=== PATIENT | male | born 1955 | race Hispanic/Latino ===

== ENCOUNTER 2022-03-20 22:57 | Emergency (ER) | payer OTHER, SELFPAY ==
[2022-03-20 23:05] VITALS: BP 130/63; PULSE 65; RESP 16; O2SAT 97; BMI 31.7
--- NOTE | 2022-03-20 23:31 | DI.RAD.S_ITS ---
PROCEDURE: XR LUMBAR SPINE 2-3V INDICATIONS: back injury TECHNIQUE: 3 views of the lumbar spine were acquired. COMPARISON: None. FINDINGS: Bones: 5 [id number] vertebrae are present. There is minimal retrolisthesis at L1-L2, L2-L3, and L3-L4. Minimal anterolisthesis demonstrated at L5-S1. No vertebral body compression fractures. There is suggestion of pars defects at L5. Soft tissues: Overlying bowel gas pattern is normal. No suspicious soft tissue calcifications. IMPRESSION: 1. No definite acute fractures. 2. Minimal multilevel retrolisthesis and minimal anterolisthesis at L5-S1. 3. Suspected pars defects at L5. Further evaluation may be obtained with dedicated oblique views or CT. Dictated by: Alton Zavala M.D. on 03/21/2022 at 0:26 Approved by: Alton Zavala M.D. on 03/21/2022 at 0:28
[2022-03-21 00:16] VITALS: TEMP 36.8
--- NOTE | 2022-03-21 00:45 | DI.CT.S_ITS ---
PROCEDURE: CT THORACIC SPINE WO CON INDICATIONS: Right side pain/injury TECHNIQUE: Noncontrast 3 mm thick sections acquired through the region of interest in the thoracic spine. Sagittal and coronal reformats were then constructed. For radiation dose reduction, the following was used: automated exposure control. COMPARISON: None. FINDINGS: Image quality: Excellent. Bones: There is normal overall bony alignment. No fractures or subluxation. Specifically, no acute vertebral body compression fractures. There is mild multilevel degenerative disc disease throughout the thoracic spine. No suspicious sclerotic or lytic bony lesions. Central spinal canal is of normal overall caliber. The visualized ribs appear intact. Soft tissues: No paravertebral masses or hematomas. Visualized posteromedial lungs appear clear. IMPRESSION: 1. No fracture or subluxation. Dictated by: Alton Zavala M.D. on 03/21/2022 at 1:27 Approved by: Alton Zavala M.D. on 03/21/2022 at 1:37
--- NOTE | 2022-03-21 00:45 | DI.CT.S_ITS ---
PROCEDURE: CT LUMBAR SPINE WO CON INDICATIONS: Right side pain/injury TECHNIQUE: Noncontrast 3 mm thick sections acquired from the T12 level to the sacrum. Sagittal and coronal reformats were constructed. For radiation dose reduction, the following was used: automated exposure control. COMPARISON: [facility], CR, XR LUMBAR SPINE 2-3V, 03/20/2022, 23:33. FINDINGS: Image quality: Excellent. Bones: There is minimal anterolisthesis at L5-S1. No fractures or subluxation. Specifically, no acute vertebral body compression fractures. No suspicious lytic or blastic bony lesions. No pars defects. No high-grade spinal canal or neural foraminal narrowing. There is moderate left neural foraminal narrowing at L5-S1. Mild to moderate right neural foraminal narrowing also demonstrated at L5-S1. Moderate facet arthropathy is demonstrated at L5-S1 as well as mild arthropathy at L4-5. Soft tissues: No retroperitoneal masses or hematomas. Visualized aorta is normal in caliber. IMPRESSION: 1. No fracture or subluxation. 2. Facet arthropathy in the lower lumbar spine including moderate degeneration at L5-S1. 3. Moderate left neural foraminal narrowing at L5-S1. Dictated by: Alton Zavala M.D. on 03/21/2022 at 1:37 Approved by: Alton Zavala M.D. on 03/21/2022 at 1:44
--- NOTE | 2022-03-21 00:47 | ED_ITS ---
HPI - Back Pain/Injury General Chief Complaint: Back Pain/Injury Stated Complaint: back injury at work Time Seen by Provider: 03/21/22 00:23 Source: patient History of Present Illness HPI Narrative: Patient brought here by his grandson. Complains of right side mid/lower back pain. Patient was at work, [employer], lifting boxes and felt pain in his mid and lower back. It did radiate down to his leg. No saddle paresthesia no bowel or bladder incontinence. No leg numbness tingling or weakness. Patient states has had pain with walking now. Pain with movement. No prior history of back surgery or therapy. Related Data Allergies Allergy/AdvReac Type Severity Reaction Status Date / Time No Known Drug Allergies Allergy Verified 03/20/22 23:21 Review of Systems Review of Systems Narrative: GENERAL: negative chills, fatigue, malaise, fever, sweats. HEENT: negative sinus pain, ear pain, sore throat RESPIRATORY: negative dyspnea, cough CARDIOVASCULAR: negative chest pain, palpitations GASTROINTESTINAL: negative nausea, vomiting, abdominal pain : negative dysuria, frequency, hematuria MUSCULOSKELETAL: Positive muscle or bony pain SKIN: negative rash, skin lesions NEUROLOGIC: negative weakness, numbness, negative bowel or bladder incontinence ROS Unobtainable: All systems reviewed & are unremarkable except as noted in HPI and below Patient History Social History Smoking Status: Never smoker Smoking Status: Never smoker Substance Use Type: does not use Exam Narrative Exam Narrative: GENERAL: in no distress, not toxic not dyspneic HEAD: Normocephalic. EYES: Pupils equal round No scleral icterus. ENT: Mucous membranes moist. NECK: Trachea midline. No midline tenderness or step-off EXTREMITIES: No gross deformities. BACK: No midline tenderness or step-off of the thoracic or lumbar spine. There is reproducible right upper paralumbar and lower parathoracic muscles. Increased pain with side bending left and right and leaning forward and back. No pain with bilateral straight leg raises in supine position NEURO: AOx4. Slightly antalgic gait due to right back pain. But no foot drop. Strong bilateral patellar reflexes. SKIN: Warm and dry PSYCH: Not anxious, is cooperative Initial Vital Signs Initial Vital Signs: Vital Signs Pulse Rate 65 03/20/22 23:05 Respiratory Rate 16 01/18/23 23:05 Blood Pressure 130/63 01/18/23 23:05 Pulse Oximetry 97 03/20/22 23:05 Oxygen Delivery Method 03/20/22 23:05 Course Orders Ordered: ED Orders 03/20/22 23:31 XR lumbar spine 2-3V Stat 03/21/22 00:45 CT lumbar spine wo con Stat CT thoracic spine wo con Stat Discontinued Medications Ketorolac Tromethamine (Ketorolac 30 Mg/Ml Vial) 15 mg IV NOW ONE Stop: 03/21/22 00:46 Last Admin: 03/21/22 01:18 Dose: Not Given Documented By: DANIEL Ketorolac Tromethamine (Ketorolac 30 Mg/Ml Vial) 15 mg IM NOW ONE Stop: 03/21/22 00:47 Last Admin: 03/21/22 01:11 Dose: 15 mg Documented By: DANIEL Vital Signs Vital signs: Vital Signs - 8 hr 03/20/22 23:05 03/21/22 00:16 03/21/22 02:16 Temperature 98.2 F Pulse Rate 65 72 Respiratory Rate 16 18 Blood Pressure 130/63 139/69 Pulse Oximetry 97 97 Oxygen Delivery Method Room Air Room Air MDM - Back Pain/Injury Imaging Data X-ray lumbar spine: Radiologist's Impression: [address] [address] XRay Report Signed Patient: Brant Cui MR#: [id number] : 1955 Acct:[id number] Age/Sex: 66 / M Date of Service: 03/20/22 Loc: ED Accession Number: [id number] ?? Procedure: XR lumbar spine 2-3V Ordering Provider: Joseph Hsu MD PROCEDURE:? XR LUMBAR SPINE 2-3V ? INDICATIONS:? back injury ? TECHNIQUE:? 3 views of the lumbar spine were acquired.? ? COMPARISON:? None. ? FINDINGS:? ? Bones:? 5 [id number] vertebrae are present.? There is minimal retrolisthesis at L1-L2, L2-L3, and L3-L4.? Minimal anterolisthesis demonstrated at L5-S1.? No vertebral body compression fractures.? There is suggestion of pars defects at L5. ? Soft tissues:? Overlying bowel gas pattern is normal.? No suspicious soft tissue calcifications.? ? ? IMPRESSION:? ? 1. No definite acute fractures. ? 2. Minimal multilevel retrolisthesis and minimal anterolisthesis at L5-S1. ? 3. Suspected pars defects at L5.? Further evaluation may be obtained with dedicated oblique views or CT.? ? ? Dictated by: Alton Zavala M.D. on 03/21/2022 at 0:26 ? ? Approved by: Alton Zavala M.D. on 03/21/2022 at 0:28 ? CT thoracic spine: Radiologist's Impression: [address] [address] [address] Scan Report Signed Patient: Brant Cui MR#: [id number] : 1955 Acct:[id number] Age/Sex: 66 / M Date of Service: 03/21/22 Loc: ED Accession Number: [id number] ?? Procedure: CT thoracic spine wo con Ordering Provider: Joseph Hsu MD PROCEDURE:? CT THORACIC SPINE WO CON ? INDICATIONS:? Right side pain/injury ? TECHNIQUE:? Noncontrast 3 mm thick sections acquired through the region of interest in the thoracic spine.? Sagittal and coronal reformats were then constructed.? For radiation dose reduction, the following was used:? automated exposure control.? ? COMPARISON:? None. ? FINDINGS:? Image quality:? Excellent.? ? Bones:? There is normal overall bony alignment.? No fractures or subluxation.? Specifically, no acute vertebral body compression fractures.? There is mild multilevel degenerative disc disease throughout the thoracic spine.? No suspicious scle rotic or lytic bony lesions.? Central spinal canal is of normal overall caliber.? The visualized ribs appear intact.? ? Soft tissues:? No paravertebral masses or hematomas.? Visualized posteromedial l ungs appear clear.? ? IMPRESSION:? ? 1. No fracture or subluxation. ? ? Dictated by: Alton Zavala M.D. on 03/21/2022 at 1:27 ? ? Approved by: Alton Zavala M.D. on 03/21/2022 at 1:37 ? CT lumbar spine: Radiologist's Impression: [address] [address] [address] Scan Report Signed Patient: Brant Cui MR#: [id number] : 1955 Acct:[id number] Age/Sex: 66 / M Date of Service: 03/21/22 Loc: ED Accession Number: [id number] ?? Procedure: CT lumbar spine wo con Ordering Provider: Joseph Hsu MD PROCEDURE:? CT LUMBAR SPINE WO CON ? INDICATIONS:? Right side pain/injury ? TECHNIQUE:? Noncontrast 3 mm thick sections acquired from the T12 level to the sacrum.? Sagittal and coronal reformats were constructed.? For radiation dose reduction, the following was used:? automated exposure control.? ? COMPARISON:? [facility], CR, XR LUMBAR SPINE 2-3V, 03/20/2022, 23:33. ? FINDINGS:? Image quality:? Excellent.? ? Bones:? There is minimal anterolisthesis at L5-S1.? No fractures or subluxat ion.? Specifically, no acute vertebral body compression fractures.? No suspicious lytic or blastic bony lesions.? No pars defects.? No high-grade spinal canal or neural foraminal narrowing.? There is moderate left neural foraminal narrowing at L5-S1.? Mild to moderate right neural foraminal narrowing also demonstrated at L5-S1.? Moderate facet arthropathy is demonstrated at L5-S1 as well as mild arthropathy at L4-5. ? Soft tissues:? No retroperitoneal masses or hematomas.? Visualized aorta is normal in caliber.? ? IMPRESSION:? ? 1. No fracture or subluxation. ? 2. Facet arthropathy in the lower lumbar spine including moderate degeneration at L5-S1. ? 3. Moderate left neural foraminal narrowing at L5-S1.? ? Dictated by: Alton Zavala M.D. on 03/21/2022 at 1:37 ? ? Approved by: Alton Zavala M.D. on 03/21/2022 at 1:44 ? Treatment and disposition Social Determinants of Health that impact treatment or disposition: None Shared decision making:: With patient MDM Narrative Medical decision making narrative: Patient brought here by his grandson. Complains of right side mid/lower back pain. Patient was at work, [employer], lifting boxes and felt pain in his mid and lower back. It did radiate down to his leg. No saddle paresthesia no bowel or bladder incontinence. No leg numbness tingling or weakness. Patient states has had pain with walking now. Pain with movement. No prior history of back surgery or therapy After exam and evaluation and history, no blood work or urine specimens indicated. Clinically back strain/muscle strain however has had radiculopathy. X-ray imaging has been ordered. In addition CT thoracic and lumbar spine. Patient has had radicular pain with this. No neuro deficits otherwise. Patient states he had significant pain when this occurred. It has improved. Toradol has been ordered MDM CC: Back pain Complicating co-morbidities: No previous back surgery Data collected from: Patient Medical records reviewed: No previous visits Differential considered: Includes but not limited to back pain/strain/bulge disc/radiculopathy Exam documented above, pertinent findings include: Tenderness to right paralumbar parathoracic muscles. Imaging studies independently reviewed: X-ray lumbar spine no acute fracture/acute process. CT lumbar spine no fracture or subluxation. There is moderate left neural foraminal narrowing of L5-S1. CT scan thoracic spine no fracture or subluxation. Treatments: Toradol Re-evaluations: Patient resting comfortably in bed. Reviewed results with patient. At this time likely muscular back strain. May continue home ibuprofen for pain. Will need to follow up with [employer]/employer medical office otherwise referral for Orthopedics given for follow-up. Discussion: Appropriate for discharge home. Exam and imaging otherwise reassuring. L and I forms were completed for [employer]. Patient according to notes from [employer] can resume with light duty, they can not accommodate for light duty. Does not need any time off of work. Return precautions reviewed with patient. He desires discharge home. Diagnosis: Lower back strain Disposition: see below, along with detailed discharge instructions that have been reviewed with patient as well as indications for ED re-evaluation and additional outpatient follow up Discharge Plan Departure Patient Disposition: Home Clinical Impression: Strain of lumbar region Instructions: DI for Back Strain or Sprain Activity Restrictions/Additional Instructions: See family doctor or your employer medical office or call provided orthopedic office tomorrow for office re-evaluation a week. L and I forms have been completed for your employer. You may resume light duty work as recommended by your employer. May continue Tylenol or ibuprofen for pain. May use warm packs to the back 20 minutes at a time as needed for pain. Return if worse if any questions or concerns Referrals: Giovany Smith MD [Physician] - Stand Alone Forms: Patient Portal/API
[2022-03-21] MEDS: KETOROLAC 30 MG/ML VIAL 15 MG IM (01:11)
[2022-03-21 02:16] VITALS: BP 139/69; PULSE 72; RESP 18; O2SAT 97
== END 2022-03-21 02:17 | disposition home or self-care (01) ==
PROVIDERS: Emergency Provider Emergency Medicine
DX: S39.012A Strain of muscle, fascia and tendon of lower back, initial encounter (principal); X50.0XXA Overexertion from strenuous movement or load, initial encounter; Y99.0 Civilian activity done for income or pay
CPT/HCPCS: 72100; 72128; 72131; 96372; 99283; 99284; J1885